=== PATIENT | female | born 1950 | race Caucasian/White ===

== ENCOUNTER → 2016-04-11 | Outpatient (CLI) | payer MEDICARE, OTHER ==
--- NOTE | 2016-04-11 10:08 | MAM ---
EXAM DESCRIPTION: MAMMO BREAST SCREENING BILATERAL CAD, images were reviewed with CAD technology, R2 computer-aided detection. CLINICAL HISTORY: [facility]. COMPARISON: No prior study currently available. FINDINGS: Routine views are obtained. Scattered glandular pattern period no dominant mass, architectural distortion or clustered microcalcification.. IMPRESSION: Benign exam. BIRAD CATEGORY: 2 BENIGN RECOMMENDATIONS: FOLLOW-UP: Routine screening mammogram in one year. According to the [employer], yearly mammograms are recommended starting at age 40 and continuing as long as a woman is in good health. Any breast change noted on a breast self-exam should be reported promptly to the patient's healthcare provider. Breast MRI is recommended for women with an approximately 20-25% or greater lifetime risk of breast cancer, including women with a strong family history of breast or ovarian cancer and women who have been treated for Hodgkin's disease. Electronically signed by: Noemi Peterson 04/11/2016 10:07
== END ==
LOC: MAMMO 09:26
PROVIDERS: ATTEND Family Medicine
DX: Z12.31 Encounter for screening mammogram for malignant neoplasm of breast (principal)
CPT/HCPCS: 77052; G0202

== ENCOUNTER → 2016-09-27 | Outpatient (CLI) | payer MEDICARE, OTHER | END | disposition home or self-care (01) | LOC: GMAL 10:36 | PROVIDERS: ATTEND Family Medicine | DX: D51.3 Other dietary vitamin B12 deficiency anemia (principal); E55.9 Vitamin D deficiency, unspecified; M10.9 Gout, unspecified ==

== ENCOUNTER 2016-11-13 05:39 | Day surgery (SDC) | payer MEDICARE, OTHER ==
[2016-11-13] MEDS: PROPARACAINE 0.5% OPHTH SOL 15 ML BTTL ONE ×3 (10:07→10:37)
[2016-11-13] MEDS ORDERED: TROP 1%/CYCLOPEN 1%/PHENYL 2% DROPS OPHTH ONE ×3 (10:07→10:18)
[2016-11-13] MEDS: TOBRAMYCIN SULF 0.3 % OPHT SOL 1 DROP LEFT_EYE ONE ×2 (10:07→10:54)
[2016-11-13] MEDS ORDERED: MIDAZOLAM INJ 5 MG/5 ML VIAL ONE (10:31)
[2016-11-13] MEDS ORDERED: LIDOCAINE 1% PF 2 ML AMP INJ ONE (10:50)
[2016-11-13] MEDS ORDERED: DEXAMETHASONE 0.1% OPHTH SOL 1 DROP LEFT_EYE ONE (10:54)
[2016-11-13] MEDS ORDERED: BRIMONIDINE 0.2% OPHTH DROPS LEFT_EYE ONE (10:55)
[2016-11-13 12:11] VITALS: O2SAT 99
[2016-11-13 16:14] VITALS: BP 158/67; TEMP 96.8
== END 2016-11-13 11:40 | disposition home or self-care (01) ==
LOC: AMB 05:39
PROVIDERS: ATTEND Ophthalmology
DX: H25.12 Age-related nuclear cataract, left eye (principal)
CPT/HCPCS: 66984; J2250

== ENCOUNTER 2016-11-23 05:48 | Day surgery (SDC) | payer MEDICARE, OTHER ==
[2016-11-23] MEDS ORDERED: MIDAZOLAM INJ 5 MG/5 ML VIAL ONE (08:46)
[2016-11-23] MEDS: PROPARACAINE 0.5% OPHTH SOL 15 ML BTTL ONE ×2 (13:00→13:40)
[2016-11-23] MEDS: TOBRAMYCIN SULF 0.3 % OPHT SOL 1 DROP RIGHT_EYE ONE ×2 (13:01→14:00)
[2016-11-23] MEDS ORDERED: TROP 1%/CYCLOPEN 1%/PHENYL 2% DROPS OPHTH ONE (13:02)
[2016-11-23] MEDS ORDERED: LIDOCAINE 1% PF 2 ML AMP INJ ONE (13:48)
[2016-11-23] MEDS ORDERED: BRIMONIDINE 0.2% OPHTH DROPS RIGHT_EYE ONE (14:00)
[2016-11-23] MEDS ORDERED: DEXAMETHASONE 0.1% OPHTH SOL 1 DROP RIGHT_EYE ONE (14:00)
[2016-11-23 15:05] VITALS: BP 160/73; O2SAT 100
[2016-11-23 15:23] VITALS: TEMP 96.9
== END 2016-11-23 14:45 | disposition home or self-care (01) ==
LOC: AMB 05:48
PROVIDERS: ATTEND Ophthalmology
DX: H25.11 Age-related nuclear cataract, right eye (principal); I10 Essential (primary) hypertension
CPT/HCPCS: 00142; 66984; J2250

== ENCOUNTER → 2017-04-05 | Outpatient (CLI) | payer MEDICARE, OTHER | END | disposition home or self-care (01) | LOC: GMAL 11:11 | PROVIDERS: ATTEND Family Medicine | DX: D51.3 Other dietary vitamin B12 deficiency anemia (principal); M10.9 Gout, unspecified; E55.9 Vitamin D deficiency, unspecified ==

== ENCOUNTER → 2017-10-23 | Outpatient (CLI) | payer MEDICARE, OTHER | LOC: GMAL 10:29 | PROVIDERS: ATTEND Family Medicine | DX: E55.9 Vitamin D deficiency, unspecified (principal) ==

== ENCOUNTER → 2018-04-30 | Outpatient (CLI) | payer MEDICARE, OTHER | LOC: GMAL 10:40 | PROVIDERS: ATTEND Family Medicine | DX: E55.9 Vitamin D deficiency, unspecified (principal) ==

== ENCOUNTER → 2018-05-13 | Outpatient (CLI) | payer MEDICARE, OTHER ==
--- NOTE | 2018-05-14 16:53 | MAM ---
EXAM DESCRIPTION: 3D Screening BILATERAL : Digital Mammography. CLINICAL HISTORY: 68 years Female SCREENING . No complaints. No personal history of breast cancer. Remote family history of breast cancer. Childbirth. Postmenopausal 12 years. No HRT.. Lifetime risk of developing breast cancer (Tyrer-Cuzick model)(%): 3.5. COMPARISON: 2-D digital screening bilateral mammography 04/11/2016. No prior reports available. TECHNIQUE: Bilateral CC and MLO projection full-field images, digital tomosynthesis mammographic technique. Bilateral digital 2-D full-field MLO images. CAD not available for tomosynthesis or 2-D images. FINDINGS: The breast parenchymal density pattern is: Scattered areas of fibroglandular density. No skin thickening or nipple retraction. Bilateral small microcalcifications. Coarse calcifications anterior left breast near the nipple. Left axillary lymph nodes. 3 small areas of architectural distortion, anterior third of the right breast 6:00 position, and just lateral to the posterior nipple line 6 cm from the nipple. Not well seen on the prior study. No new focal, stellate mass or density, focal asymmetry , and no suspicious microcalcifications left breast. IMPRESSION: BI-RADS CATEGORY: 0 - INCOMPLETE- Need additional imaging evaluation. FOLLOW-UP: Recall for additional imaging: Orthogonal full-field tomosynthesis right breast.. Targeted right breast ultrasound. Written communication concerning the IMPRESSION and Follow-up, will be mailed to the patient and referring health care provider. Electronically signed by: Maxime Staples MD 05/14/2018 4:50 PM [facility] RECEPTIONIST
== END ==
LOC: MAMMO 09:30
PROVIDERS: ATTEND Family Medicine
DX: Z12.31 Encounter for screening mammogram for malignant neoplasm of breast (principal)

== ENCOUNTER → 2018-12-03 | Outpatient (CLI) | payer MEDICARE, OTHER | LOC: GMAL 10:32 | PROVIDERS: ATTEND Family Medicine | DX: D51.3 Other dietary vitamin B12 deficiency anemia (principal); E55.9 Vitamin D deficiency, unspecified; I10 Essential (primary) hypertension; E78.49 Other hyperlipidemia; M10.9 Gout, unspecified ==

== ENCOUNTER → 2019-03-04 | Outpatient (CLI) | payer MEDICARE, OTHER | LOC: GMAL 10:19 | PROVIDERS: ATTEND Family Medicine | DX: D51.3 Other dietary vitamin B12 deficiency anemia (principal); R73.9 Hyperglycemia, unspecified ==

== ENCOUNTER 2019-03-08 07:32 | Emergency (ER) | payer MEDICARE, OTHER ==
--- NOTE | 2019-03-08 07:49 | ED.PDOC ---
History of Present Illness - General Chief Complaint: GI Problem Time Seen by Provider: 03/08/19 07:46 Information Source: patient, RN notes reviewed, Vital Signs reviewed, family Exam Limitations: no limitations - History of Present Illness Initial Comments: this is a 69-year-old white female who presents to the ED with complaints of abdominal pain. She states that the discomfort started on Sunday. She had eaten a chicken pot pie. She does have a close family member with similar symptoms who is hospitalizedin [place]. She states that she went to see her physician on Sunday and was noted to have a fever. No medications were given upon discharge from the clinic. She states that she continued to have vomiting and diarrhea until . Her last episode of fever was on . She states that it was as high as 102. She states that she has been able to hold down Pedialyte but has not eaten in 4 days. She tried to eat some toast yesterday butdid not continue. Her appetite has been decreased. She has not tried any medications to decrease her discomfort. The pain is high in the abdomen. She reports about 5 episodes of emesis and 2 episodes of loose stools without blood. She denies any body aches. She did not take her blood pressure medications this morning but took them last night. The only abdominal surgery that she reports as a . She has had a colonoscopy years ago and reports that it was all normal. Review of Systems - Review of Systems Constitutional: States: fever, malaise EENTM: States: no symptoms reported Respiratory: States: no symptoms reported Cardiology: States: no symptoms reported Gastrointestinal/Abdominal: States: abdominal pain, diarrhea, nausea, vomiting Genitourinary: States: no symptoms reported - reports decrease frequency of urination Musculoskeletal: States: no symptoms reported Skin: States: no symptoms reported Neurological: States: no symptoms reported Endocrine: States: no symptoms reported Hematologic/Lymphatic: States: no symptoms reported All other Systems: Reviewed and Negative Past Medical History (General) - Patient Medical History Hx Stroke: No Hx Congestive Heart Failure: Yes Hx Hypertension: Yes Hx Diabetes: No Hx MRSA: No - Vaccination History Hx Tetanus, Diphtheria Vaccination: No Hx Influenza Vaccination: No Hx Pneumococcal Vaccination: Yes - 2018 - Social History Hx Tobacco Use: Yes Hx Alcohol Use: Yes - Infrequent Hx Substance Use: No Family Medical History - Family History Mother Living Status: Hx Family Hypertension: Yes Hx Family Stroke: Yes Hx Family Diabetes: Yes Physical Exam - Physical Exam General Appearance: Alert, Obvious distress - secondary to pain, Ill Appearing, Well Developed, Well Groomed Eyes, Ears, Nose, Throat Exam: PERRL/EOMI, normal ENT inspection, other - dry oropharynx Neck: non-tender, full range of motion, supple, normal inspection Respiratory: chest non-tender, lungs clear, normal breath sounds, no respiratory distress, no accessory muscle use Cardiovascular/Chest: normal peripheral pulses, regular rate, rhythm, no edema, no gallop, no JVD, no murmur Peripheral Pulses: No deficit Gastrointestinal/Abdominal: abnormal bowel sounds - decreased, distended, tenderness - ,tenderness is noted in the right upper quadrant midepigastric and left upper quadrant. No rebound is noted. Pain is elicited upon sitting up Rectal Exam: deferred Back Exam: normal inspection, no CVA tenderness, no vertebral tenderness Neurologic: reading interventionist II-XII nml as tested, no motor/sensory deficits, alert, normal mood/affect, oriented x 3 Skin Exam: other - poor turgor Lymphatic: no adenopathy Progress - Progress Progress: 03/08/19 09:42 received a call from the radiologist stating that the patient has a pneumoperitoneum. Focus is not well defined. She does have diverticulosis without diverticulitis. There is also a mass noted in the liver. Start antibiotic treatment. We'll prepare for transfer. 03/08/19 10:41 patient reports last by mouth intake was at 0500. Her pain is better controlled. Her blood pressure did drop some after getting the fentanyl. She has antibiotics infusing currently. We will give her 500 cc bolus as well. 03/08/19 11:[address] Ab Metzger general surgeon in [place]. He agrees to accept the patient to the emergency room and will evaluate there first. We will keep the patient nothing by mouth. 03/08/19 11:11 Updated pt on the transfer. Pain is a 2/10. Will hold off on any more pain meds at present. - Results/Orders Results/Orders: Laboratory Tests 03/08/19 03/08/19 03/08/19 08:20 08:20 08:20 WBC 12.2 H RBC 4.16 L Hgb 12.3 Hct 37.2 MCV 89.5 MCH 29.5 MCHC 33.0 RDW 14.4 Plt Count 128 L MPV 11.4 H Absolute Neuts (auto) 10.80 H Absolute Lymphs (auto) 0.40 L Absolute Monos (auto) 1.10 H Absolute Eos (auto) 0.00 Absolute Basos (auto) 0.00 Neutrophils % 88.1 H Lymphocytes % 3.0 L Monocytes % 8.7 Eosinophils % 0.1 L Basophils % 0.1 Sodium 134 L Potassium 3.7 Chloride 99 L Carbon Dioxide 23 Anion Gap 15.7 BUN 59 H Creatinine 1.74 H BUN/Creatinine Ratio 33.9 H Random Glucose 141 H Serum Osmolality 287.1 Lactic Acid 2.6 H* Calcium 9.8 Total Bilirubin 1.0 AST 407 H ALT 414 H Alkaline Phosphatase 77 Serum Total Protein 6.5 Albumin 2.9 L Globulin 3.6 H Albumin/Globulin Ratio 0.8 L IMPRESSION: Partially limited evaluation without intravenous contrast. 1. Mild to moderate pneumoperitoneum with anterior abdominal free air and small foci of gas surrounding the liver and also within the left abdomen adjacent to several bowel loops. 2. Right hepatic lobe ill-defined hypodensity concerning for large hepatic mass (measuring at least 10 cm). Further characterization with contrast- enhanced CT or MRI liver protocol when possible. 3. Large nodular thickening of the left adrenal gland measuring less than 10 Hounsfield units is most consistent with lipid rich adenoma. 4. Trace free fluid along the right paracolic gutter and pelvis. 5. Moderate diverticulosis without definite evidence of diverticulitis. Departure - Departure Clinical Impression: Pneumoperitoneum of unknown etiology Abdominal pain Qualifiers: Abdominal location: epigastric Qualified Code(s): R10.13 - Epigastric pain Vomiting Qualifiers: Vomiting type: unspecified Vomiting Intractability: non-intractable Nausea presence: with nausea Qualified Code(s): R11.2 - Nausea with vomiting, unspecified Diarrhea Qualifiers: Diarrhea type: unspecified type Qualified Code(s): R19.7 - Diarrhea, unspecified Time of Disposition: 11:08 Disposition: Transfer to Hospital Condition: Fair Departure Forms: ED Discharge - Pt. Copy, Patient Portal Self Enrollment Referrals: Mike Akins III, MD [Primary Care Provider] - 1-2 Weeks Home Medications: Ambulatory Orders Allopurinol [Zyloprim] 100 mg PO DAILY 03/08/19 Amlodipine Besylate-Valsartan [Exforge 5-320 mg] 1 tab PO DAILY 03/08/19 Aspirin [Aspirin Adult Low Dose] 81 mg PO MOWETHSA 03/08/19 Carvedilol 25 mg PO BID 03/08/19 Fenofibrate [Tricor] 145 mg PO DAILY 03/08/19 Potassium 99 mg PO DAILY 03/08/19 Transfer to Outside Facility - Transfer Information Decision to Transfer Date: 03/08/19 Decision to Transfer Time: 11:09 Reason for Transfer: specialized care not available Accepting Provider:: Dr. Mathews Accepting Facility: [facility]
[2019-03-08] MEDS ORDERED: ONDANSETRON INJ 4 MG/2 ML VIAL IV ONE (08:04)
[2019-03-08] MEDS ORDERED: SODIUM CHLORIDE 0.9% 1000ML 1,000 ML IVS ONE (08:05)
[2019-03-08] MEDS ORDERED: PANTOPRAZOLE SODIUM IV 40 MG VIAL IV ONE (08:05)
--- NOTE | 2019-03-08 09:34 | CT ---
EXAM DESCRIPTION: Abdoment/Pelvis w/o Contrast CLINICAL HISTORY: 69 years, Female, abdominal pain COMPARISON: None. TECHNIQUE: CT of the abdomen and pelvis is performed without IV or p.o. contrast. Multiplanar reconstructions were obtained. FINDINGS: Partially limited evaluation without intravenous contrast. Dense bibasilar subsegmental atelectasis. Trace right pleural effusion. There is mild to moderate pneumoperitoneum with anterior abdominal free air and small foci of gas surrounding the liver and also within the left abdomen adjacent to several bowel loops. Large ill-defined hypodensity, possible mass, is present throughout the right hepatic lobe and hepatic dome measuring at least 10 cm. No associated significant capsular retraction or biliary ductal dilatation. The gallbladder is normal without calcified gallstones. The kidneys are normal in contour without hydronephrosis, nephrolithiasis, or perinephric fluid collection. Left renal hypodensities are nonspecific but statistically represent cysts. Large nodular thickening of the left adrenal gland measuring up to 3.4 x 1.4 cm (measuring approximately 6-9 Hounsfield units) is more consistent with lipid rich adenoma. Moderate diverticulosis without evidence of diverticulitis. No bowel obstruction. The appendix is unremarkable. The partially distended bladder is normal in appearance. Trace free fluid within the right paracolic gutter and within the pelvis. The reproductive organs are unremarkable. No lymphadenopathy. No acute osseous abnormality. Degenerative changes of the spine IMPRESSION: Partially limited evaluation without intravenous contrast. 1. Mild to moderate pneumoperitoneum with anterior abdominal free air and small foci of gas surrounding the liver and also within the left abdomen adjacent to several bowel loops. 2. Right hepatic lobe ill-defined hypodensity concerning for large hepatic mass (measuring at least 10 cm). Further characterization with contrast-enhanced CT or MRI liver protocol when possible. 3. Large nodular thickening of the left adrenal gland measuring less than 10 Hounsfield units is most consistent with lipid rich adenoma. 4. Trace free fluid along the right paracolic gutter and pelvis. 5. Moderate diverticulosis without definite evidence of diverticulitis. Critical finding: Findings on this exam including pneumoperitoneum or discussed with Dr. YANETH COTTER via telephone at 03/08/2019 9:30 AM [facility] by Dr. Merlin Palacios. This exam was performed according to our departmental dose-optimization program, which includes automated exposure control, adjustment of the mA and/or kV according to patient size and/or use of iterative reconstruction technique. Electronically signed by: Merlin Palacios DO 03/08/2019 9:32 AM [facility]
[2019-03-08] MEDS ORDERED: metroNIDAZOLE IV PREMIX 500MG 500 MG in PREMIX BAG 1 BAG IVPB ONE (09:43)
[2019-03-08] MEDS ORDERED: levoFLOXacin 500MG IV 500 MG in PREMIX BAG 1 BAG IVPB ONE (09:43)
[2019-03-08] MEDS ORDERED: SODIUM CHLORIDE 0.9% 1000ML 1,000 ML IVS PRN (09:47)
[2019-03-08] MEDS ORDERED: fentaNYL CITRATE INJ 50 MCG/ML AMP IV ONE (09:47)
[2019-03-08] MEDS ORDERED: metroNIDAZOLE IV PREMIX 500MG 100 ML IVPB ONE (09:59)
[2019-03-08] MEDS ORDERED: levoFLOXacin 500MG IV 100 ML IVPB ONE (11:59)
[2019-03-08 12:08] VITALS: BP 95/46; TEMP 98.3; O2SAT 97
== END 2019-03-08 12:24 | disposition short-term general hospital (02) ==
LOC: ER 07:32
DX: R10.13 Epigastric pain (principal); R11.2 Nausea with vomiting, unspecified; R19.7 Diarrhea, unspecified; I31.9 Disease of pericardium, unspecified; I50.9 Heart failure, unspecified; I11.0 Hypertensive heart disease with heart failure; Z87.891 Personal history of nicotine dependence; Z79.82 Long term (current) use of aspirin; Z79.899 Other long term (current) drug therapy
CPT/HCPCS: 36415; 74176; 80053; 83605; 85025; 87040; 87502; J1956; J2405; J3010; J3490; J7030

== ENCOUNTER → 2019-06-26 | Outpatient (CLI) | payer MEDICARE, OTHER ==
--- NOTE | 2019-06-26 11:16 | CT ---
EXAM DESCRIPTION: Abdomen/Pelvis w/wo Contrast: Computed Tomography. CLINICAL HISTORY: HEPATIC ABSCESS COMPARISON: CT scan of the abdomen and pelvis with IV contrast May 19. TECHNIQUE: Spiral-axial scans at 5 x 5 mm intervals through the abdomen and pelvis before and after nonionic IV contrast. Water soluble oral contrast Coronal and sagittal 5 x 5 mm reconstructions. 5 x 5 mm Delayed helical-axial scans, liver through the pubic symphysis. No adverse reactions. Total Exam DLP 1549 mGy - cm. This exam was performed according to our departmental CT dose-optimization program which includes automated exposure control, adjustment of the mA and/or kV according to patient size and/or use of iterative reconstruction technique; to reduce radiation dose to as low as reasonably achievable (ALARA). FINDINGS: Lung bases and pleura: Minimal atelectasis in the bilateral lung bases. Liver, Stomach, Spleen, Adrenal Glands: Irregularly enhancing abnormality in the subcapsular dome of the right liver with ill-defined borders measuring 4.9 x 5.4 cm in the transverse plane and 2.3 cm craniocaudal. Previous dimensions 7.5 x 5.2 x 4.0 cm. The well-defined, circumscribed, low-density regions in this tissue with density between fluid and soft tissue, present on the prior study, has significantly decreased in volume. The remainder the liver demonstrates normal enhancement in all segments craniocaudal dimension 20.2 cm stable. Left adrenal gland stable. Medication in the stomach stable size. Other solid organs negative. Pancreas, Gallbladder, Ducts: Layering stones/sludge in the dependent gallbladder unchanged. Unremarkable and stable from the prior study. Kidneys and Ureters: Bilateral multiple cysts otherwise negative. Mesentery: Minimal ascites in the abdomen and fascial thickening more in the pelvis than the abdomen. Fluid in the cul-de-sac. Aorta: Moderate atherosclerotic calcifications and ectasia stable from the prior study. Small Bowel: Gas and fluid proximally and oral contrast mostly distally. No distention. Terminal Ileum/Cecum: Normal caliber including the appendix containing oral contrast. No inflammatory changes. Stable from the prior study. Colon: Redundant moderate blind sigmoid with increased fecal matter stable. No distended segments or air-fluid levels proximal colon with diverticula again noted with no complications. Mid transverse colostomy also stable. Pelvic Organs: Retroflexed uterus again noted with irregular enhancement and minimal surrounding stranding, as well as moderate fluid in the cul-de-sac stable. Spine and Bony Pelvis: Bilateral mild arthrosis in the hips and SI joints. Thoracolumbar scoliosis. Spondylosis at multiple levels, most severe at L5-S1 with significant foraminal narrowing, also at L3-L4. Superior depression and Schmorl's node L4, less depression at L1. Stable since the prior study. Abdominal Wall/Back Soft Tissues: Subcutaneous diastases abutting the abdominal wall fascia in the midline at the umbilical level. Colostomy defect with no complications. IMPRESSION: 1. Mass lesion in the subcapsular dome of the right lobe of the liver is decreased in overall size, and demonstrating less liquefication compared to the prior study. Inhomogeneous enhancement. This is interpreted to indicate resolving hepatic abscess. 2. Fascial thickening and free fluid in the pelvic cul-de-sac with retroflexed partially enhancing uterus. Ovaries not well demonstrated. Stable since the prior study. 3. Stable diverticulosis proximal colon, and mid transverse colon colostomy with no complications. Blind sigmoid colon with fecal impaction stable. 4. Mild aortic dilatation, stable since the prior study, not meeting criteria for aneurysm. No follow-up imaging is recommended. Reference: J Am Pradeep Radiol 2013;10:789-794. Electronically signed by: Maxime Staples MD 06/26/2019 11:15 AM CDT
== END ==
LOC: CT 09:50
PROVIDERS: ATTEND Internal Medicine Infectious Disease
DX: K75.0 Abscess of liver (principal); K65.9 Peritonitis, unspecified; R18.8 Other ascites; K57.30 Diverticulosis of large intestine without perforation or abscess without bleeding; K56.41 Fecal impaction; I77.819 Aortic ectasia, unspecified site; N85.9 Noninflammatory disorder of uterus, unspecified; Z93.3 Colostomy status

== ENCOUNTER → 2019-09-11 | Outpatient (CLI) | payer MEDICARE, OTHER ==
--- NOTE | 2019-09-11 16:20 | CT ---
EXAM DESCRIPTION: CT ABDOMEN AND PELVIS WITHOUT AND WITH CONTRAST CLINICAL HISTORY: Peritonitis COMPARISON: Previous study July 30, 2019 TECHNIQUE: CT of the abdomen and pelvis are performed prior to and during IV bolus administration of 100 mL of Isovue 300. Oral contrast media is administered as well. FINDINGS: CT abdomen The lung bases are clear of infiltrate. Heart is prominent with extensive coronary calcification. Previous study showed a liver abscess in July 2019 which had improved involving the dome of the right lobe. Low density in this area is ill-defined and poorly marginated. Previously the abnormal low density in the upper right lobe of the liver measured 5.4 x 5.1 cm. On the present study this measures approximately 4.7 x 4.3 cm. This is consistent with improvement and therefore argues against neoplasm. No fluid collection to suggest an abscess on the present study. Stones are seen in the dependent portion of the gallbladder. Ostomy site in the left midabdomen. Small amount of free fluid in the abdomen below the right lobe of the liver. This is slightly greater than on previous study.. Spleen, pancreas, and kidneys are unremarkable. Thickened left adrenal gland with no focal mass. Right adrenal gland appears slightly thickened as well suggesting hyperplasia. Delayed images show positive contrast accumulation in the urinary collecting systems. Multiple small renal lesions probably cysts. Ectatic infrarenal abdominal aorta measures up to 2.6 cm in diameter unchanged from previous. CT pelvis No inflammation is seen around the cecum or terminal ileum or sigmoid colon. Appendix is normal in appearance. No stones are seen in the distal ureters or bladder. Delayed images show positive contrast in the urinary bladder and in the distal ureters with positive ureteral contrast jets. Lobulated uterus consistent with fibroids. No inflammation around the appendix. Normal pelvic small bowel loops. No fracture or lytic lesion of the osseous structures. Postcontrast images show normal enhancement of the pelvic vessels. Uterus appears prominent for age with prominent left pelvic vessels (pelvic venous congestion). No ovarian enlargement. No acute inflammatory changes in the pelvis. Right colonic diverticulitis is noted. Partial colonic resection with residual sigmoid colon and rectum negative for wall thickening or pericolonic inflammatory changes. Bowel anastomotic staple line in the right pelvis. No pathologic small bowel dilatation. Normal enhancement of the pelvic vessels. Coronal and sagittal reformatted images confirm the findings. Old superior endplate compressions at L1 and L4. Liver is large measuring 20.7 cm in length. Gallbladder is prominent in size. IMPRESSION: Decreased size of abnormal low density in the upper right lobe of the liver consistent with improvement. Small amount of free fluid in the abdomen near the inferior tip of the right lobe of the liver. Gallstones. This exam was performed according to our departmental dose-optimization program, which includes automated exposure control, adjustment of the mA and/or kV according to patient size and/or use of iterative reconstruction technique. Electronically signed by: David Valderrama MD 09/11/2019 4:19 PM CDT
== END ==
LOC: CT 10:30
PROVIDERS: ATTEND Internal Medicine Infectious Disease
DX: K75.0 Abscess of liver (principal); K65.9 Peritonitis, unspecified; K80.20 Calculus of gallbladder without cholecystitis without obstruction; R18.8 Other ascites

== ENCOUNTER → 2019-11-03 | Outpatient (CLI) | payer MEDICARE, OTHER ==
--- NOTE | 2019-11-03 13:29 | CT ---
EXAM DESCRIPTION: Abdomen/Pelvis w/wo Contrast CLINICAL HISTORY: 69 years Female, PERITONITIS, HEPATIC ABSCESS TECHNIQUE: This exam was performed according to our departmental dose-optimization program, which includes automated exposure control, adjustment of the mA and/or kV according to patient size and/or use of iterative reconstruction technique. COMPARISON: September 11, 2019 FINDINGS: Visualized lung bases are grossly unremarkable. Interval decrease in conspicuity of the hypoattenuating hepatic dome lesion, currently measuring 2.6 cm, previously 3.8 cm series 2 image 11. No new hepatic lesion. No biliary dilatation. The portal vein is patent. Cholelithiasis. Calcified granulomas in the spleen. The pancreas and adrenal glands are unremarkable. Bilateral renal cysts. Symmetric renal parenchymal enhancement. No hydronephrosis. No urolithiasis. The bladder is decompressed. Uterus is anteverted. No suspicious adnexal lesion. Partial colectomy with a left lower quadrant ostomy. Normal appendix. No evidence of bowel obstruction or focal inflammatory change. No adenopathy. No focal fluid collection. No free air. Diffuse atherosclerotic disease. Normal caliber abdominal aorta. Osteopenia. No acute or suspicious osseous abnormality. Scattered degenerative changes present. IMPRESSION: Interval decrease in size of hypoattenuating hepatic dome lesion currently measuring 2.6 cm (the previously reported abscess). Electronically signed by: Kameron Hirsch MD 11/03/2019 1:27 PM CDT
== END ==
LOC: CT 08:00
PROVIDERS: ATTEND Internal Medicine Infectious Disease
DX: Z01.812 Encounter for preprocedural laboratory examination (principal); K75.0 Abscess of liver; K65.9 Peritonitis, unspecified

== ENCOUNTER → 2019-11-18 | Outpatient (CLI) | payer MEDICARE, OTHER | LOC: GMAL 10:42 | PROVIDERS: ATTEND Family Medicine | DX: D51.3 Other dietary vitamin B12 deficiency anemia (principal); E55.9 Vitamin D deficiency, unspecified; R53.83 Other fatigue; E78.49 Other hyperlipidemia; I10 Essential (primary) hypertension ==

== ENCOUNTER → 2020-01-23 | Outpatient (CLI) | payer MEDICARE, OTHER ==
--- NOTE | 2020-01-25 09:52 | CT ---
EXAM DESCRIPTION: Abdomen/Pelvis w/wo Contrast CLINICAL HISTORY: 69 years Female, hepatic abscess TECHNIQUE: This exam was performed according to our departmental dose-optimization program, which includes automated exposure control, adjustment of the mA and/or kV according to patient size and/or use of iterative reconstruction technique. COMPARISON: Multiple examinations to include November 03, 2019 FINDINGS: Visualized lung bases are grossly unremarkable. Redemonstrated ill-defined hypoattenuating hepatic dome lesion which measures 1.8 cm. No new hepatic lesion. Cholelithiasis. Portal vein is patent. The spleen, pancreas and right adrenal gland are unremarkable. Similar left adrenal gland thickening. Symmetric renal parenchymal enhancement. No hydronephrosis. No urolithiasis. Unremarkable bladder. No suspicious adnexal lesion. Rectal stump. Left upper quadrant ostomy. No evidence of bowel obstruction or focal inflammatory change. Fat-containing ventral abdominal wall hernia. Normal appendix. No adenopathy. No focal fluid collection. No free air. Abdominal aorta measures 2.8 cm. Diffuse atherosclerotic disease. No acute or suspicious osseous abnormality. Scattered degenerative changes present. No urothelial lesion. IMPRESSION: 1. Interval decrease in size of the ill-defined hypoattenuating hepatic dome lesion. 2. Dilatation of the infrarenal abdominal aorta measuring 2.8 cm. Recommend follow-up ultrasound or CT every 5 years. Electronically signed by: Kameron Hirsch MD 01/25/2020 9:51 AM [employer]
== END ==
LOC: CT 08:30
PROVIDERS: ATTEND Internal Medicine Infectious Disease
DX: Z01.812 Encounter for preprocedural laboratory examination (principal); K75.0 Abscess of liver; K65.9 Peritonitis, unspecified; I77.811 Abdominal aortic ectasia

== ENCOUNTER → 2020-02-17 | Outpatient (CLI) | payer MEDICARE, OTHER | LOC: GMAL 11:13 | PROVIDERS: ATTEND Family Medicine | DX: D51.3 Other dietary vitamin B12 deficiency anemia (principal); E55.9 Vitamin D deficiency, unspecified; R73.9 Hyperglycemia, unspecified; I10 Essential (primary) hypertension; E78.49 Other hyperlipidemia ==